=== PATIENT | female | born 1990 | race Caucasian/White ===

== ENCOUNTER 2017-05-15 20:47 | Emergency (ER) | payer MEDICAID ==
[~2017-05-15] VITALS: Ht 157.5 cm; Wt 59.0 kg
[2017-05-16 00:21] VITALS: BP 113/75
== END 2017-05-16 02:05 | disposition home or self-care (01) ==
LOC: ER 21:49
DX: F41.0 Panic disorder [episodic paroxysmal anxiety] (principal); Z98.890 Other specified postprocedural states
CPT/HCPCS: 81025; 99283